=== PATIENT | male | born 1960 | race Caucasian/White ===

== ENCOUNTER 2017-06-21 08:07 | Outpatient (CLI) | payer BC ==
--- NOTE | 2017-06-21 08:34 | RAD ---
THREE VIEWS OF THORACIC SPINE: COMPARISON: None. HISTORY: Back pain after snow skiing. Compression fracture. FINDINGS: Three views of the thoracic spine show normal height and alignment of the thoracic vertebral bodies a nd intervertebral disks without fracture or subluxation. There appear to be degenerative changes at the thoracolumbar junction. IMPRESSION: No obvious compression fracture identified. POS: [facility]
== END 2017-06-21 08:08 | disposition home or self-care (01) ==
LOC: TBSIIMAG 08:07
PROVIDERS: ATTEND Neurological Surgery
DX: S22.008A Other fracture of unspecified thoracic vertebra, initial encounter for closed fracture (principal); S32.010A Wedge compression fracture of first lumbar vertebra, initial encounter for closed fracture
CPT/HCPCS: 72070

== ENCOUNTER 2023-01-06 08:40 | Outpatient (CLI) | payer OTHER | END 2023-01-06 08:41 | disposition home or self-care (01) | LOC: ULT 08:40 | PROVIDERS: ATTEND Family Medicine | DX: K75.81 Nonalcoholic steatohepatitis (NASH) (principal) | CPT/HCPCS: 76700 ==

== ENCOUNTER 2024-10-17 12:52 | Outpatient (CLI) | payer OTHER | END 2024-10-17 12:53 | disposition home or self-care (01) | LOC: BICCT 12:52 | PROVIDERS: ATTEND Internal Medicine Cardiovascular Disease | DX: E13.9 Other specified diabetes mellitus without complications (principal); K22.89 Other specified disease of esophagus | CPT/HCPCS: 75571 ==

== ENCOUNTER 2025-02-18 09:01 | Outpatient (CLI) | payer OTHER ==
[2025-02-18 10:29] LABS: #Basophils 0.04 10x3/uL (0.0-0.2); #Eosinophils 0.12 10x3/uL (0.0-0.7); #Monocytes 0.49 10x3/uL (0.11-0.59); #Neutrophils 3.92 10x3/uL (1.40-6.50); %Basophils 0.6 % (0.0-1.0); %Eosinophils 1.9 % (0.0-10.0); %Lymphocytes 25.9 % (21.0-51.0); %Monocytes 7.9 % (0.0-10.0); %Neutrophils 63.5 % (42.0-75.0); Hematocrit 47.5 % (42.0-52.0); Hemoglobin 15.9 g/dL (14.0-18.0); Mean Corpuscular Hemoglobin 30.5 pg (27.0-31.0); Mean Corpuscular Volume 91.2 fL (78.0-98.0); Platelet Count 190 10x3/uL (130-400); Red Blood Cell (RBC) Count 5.21 mill/uL (4.70-6.10); White Blood Cell (WBC) Count 6.18 10x3/uL (4.8-10.8)
[2025-02-18 11:14] LABS: ALT (SGPT) 16 U/L (Less than 45); AST (SGOT) 19 U/L (11-34); Albumin 3.8 g/dL (3.1-4.5); Alkaline Phosphatase 105 U/L (40-110); Anion Gap 9 mmol/L (10-20); BUN (Urea Nitrogen) 20 mg/dL (8.4-25.7); Bilirubin, Direct 0.2 mg/dL (0.1-0.3); Bilirubin, Total 0.4 mg/dL (0.3-1.2); Calc. Creatinine Clearance 0 mL/min (70-130); Calcium 8.6 mg/dL (7.8-10.44); Carbon Dioxide 25 mmol/L (23-31); Chloride 107 mmol/L (98-107); Globulin 3.1 g/dL (2.4-3.5); Glucose 162 mg/dL (80-115); Potassium 4.4 mmol/L (3.5-5.1); Sodium 137 mmol/L (136-145)
== END 2025-02-18 09:02 | disposition home or self-care (01) ==
LOC: LABBT 09:01
PROVIDERS: ATTEND Internal Medicine Cardiovascular Disease
DX: Z01.818 Encounter for other preprocedural examination (principal); R94.39 Abnormal result of other cardiovascular function study
CPT/HCPCS: 80053; 80076; 85025; 93005; 93010

== ENCOUNTER 2025-02-22 05:58 | Day surgery (SDC) | payer OTHER ==
[2025-02-18 09:21] VITALS: BMI 32.0
[2025-02-22] MEDS ORDERED: Lidocaine 1% (PF) 30 ML VIAL ONE (06:45)
[2025-02-22] MEDS ORDERED: Iopamidol 370 76% 100 ML VIAL ONE (09:09)
== END 2025-02-22 12:55 | disposition home or self-care (01) ==
LOC: SDC 05:58
PROVIDERS: ATTEND Internal Medicine Cardiovascular Disease
DX: I25.10 Atherosclerotic heart disease of native coronary artery without angina pectoris (principal)
CPT/HCPCS: 93458; 99152; 99153; C1769; C1894; J2003; J3010; Q9967